=== PATIENT | male | born 1995 | race African-American/Black ===

== ENCOUNTER 2022-09-07 13:00 | Emergency (ER) | payer OTHER, SELFPAY ==
--- NOTE | ~2022-09-07 | XR_ITS ---
XR foot LT 2V 09/07/2022 13:35 INDICATION: Left foot pain PROCEDURE: 4 views left foot COMPARISON: No prior studies for comparison. FINDINGS: Fracture, dislocation or subluxation is not identified. Lisfranc joint is normal. The soft tissues appear within normal limits. No foreign bodies are identified. IMPRESSION: 1: NO ACUTE BONE OR JOINT ABNORMALITY IDENTIFIED. Reviewed, dictated and finalized at location A.
[2022-09-07 13:06] VITALS: BP 145/66; PULSE 67; RESP 17; TEMP 36.2; O2SAT 98
--- NOTE | 2022-09-07 13:47 | ED.GENADULT ---
HPI - General Adult General Chief complaint: Wound/Laceration Stated complaint: nail puncture on foot Time Seen by Provider: 09/07/22 13:11 History of Present Illness HPI narrative: This is a 18-year-old male presenting ED with chief complaint of stepping on a nail. Patient was walking his boots when he stepped on a nail that went through his shoe and into his foot. He does not know his last tetanus shot was. He does not feel a foreign body in his foot foot anymore. He denies any other complaints. Related Data Allergies Allergy/AdvReac Type Severity Reaction Status Date / Time No Known Allergies Allergy Verified 09/07/22 13:08 Review of Systems Review of Systems: CONSTITUTIONAL: Denies night sweats. EYES: No eye pain ENT: Denies rhinorrhea CARDIOVASCULAR: Denies palpitations RESPIRATORY: Denies hemoptysis GASTROINTESTINAL: Denies hematemesis GENITOURINARY: Denies hematuria. SKIN: Denies rash MUSCULOSKELETAL: Denies myalgia. NEUROLOGIC: Denies weakness. PSYCHIATRIC: Denies delusions Exam Narrative: APPEARANCE: No apparent distress. Head atraumatic. EYES: PERRLA/EOMI, NOSE: Normal no drainage NECK: Supple, Trachea midline RESPIRATORY: CTAB, No increased work of breathing. CARDIOVASCULAR: S1S2 appreciated ABDOMINAL: Soft, nontender, nondistended, MUSCULOSKELETAl: No obvious deformities NEURO: Alert. Moving 4/4 extremities SKIN:: small puncture wound on the sole of the left foot over the forefoot. No foreign body noted PSYCHIATRIC: Normal affect Course Vital Signs Vital signs: Vital Signs Temperature 97.2 F L 09/07/22 13:06 Pulse Rate 67 09/07/22 13:06 Respiratory Rate 17 09/07/22 13:06 Blood Pressure 145/66 H 09/07/22 13:06 Pulse Oximetry 98 09/07/22 13:06 Temperature 97.2 F L 09/07/22 13:06 Pulse Rate 67 09/07/22 13:06 Respiratory Rate 17 09/07/22 13:06 Blood Pressure 145/66 H 09/07/22 13:06 Pulse Oximetry 98 09/07/22 13:06 Medical Decision Making [facility] Narrative Medical decision making narrative: This is a 26-year-old male presenting ED after stepping on a nail. I did go through his shoe and into his foot. He will be given a course of Cipro to cover for Pseudomonas. He was given a Tdap booster. Discharged with primary care follow-up. Vital Signs Vital Signs: Vital Signs Temperature 97.2 F L 09/07/22 13:06 Pulse Rate 67 09/07/22 13:06 Respiratory Rate 17 09/07/22 13:06 Blood Pressure 145/66 H 09/07/22 13:06 Pulse Oximetry 98 09/07/22 13:06 Temperature 97.2 F L 09/07/22 13:06 Pulse Rate 67 09/07/22 13:06 Respiratory Rate 17 09/07/22 13:06 Blood Pressure 145/66 H 09/07/22 13:06 Pulse Oximetry 98 09/07/22 13:06 Discharge Plan Discharge Clinical Impression: Puncture Patient Disposition: Home, Self-Care Condition: Stable Instructions: Antibiotic Form Additional Instructions: please complete a 7 day course of ciprofloxacin. Please return emergency department if your foot develops signs of infection. Please follow-up with your primary care physician. Prescriptions: New ciprofloxacin HCl [Cipro] 500 mg tablet 500 mg PO Q12H Qty: 14 0RF Follow-up/Referrals: PHYSICIAN NOT ON STAFF,NONSTAFF [Primary Care Provider] -
[2022-09-07] MEDS: TETANUS,DIPHTHERIA,AC PERTUSSIS ADULT (0.5 ML) BOOSTRIX IM (14:10)
[2022-09-07] MEDS: CIPROFLOXACIN 500 MG TAB PO (14:11)
== END 2022-09-07 14:20 | disposition home or self-care (01) ==
LOC: ANHED 14:06
PROVIDERS: Emergency Provider Emergency Medicine
DX: S91.332A Puncture wound without foreign body, left foot, initial encounter (principal); Z23 Encounter for immunization; W45.0XXA Nail entering through skin, initial encounter
CPT/HCPCS: 73620; 90471; 90715; 99283; A9270

== ENCOUNTER 2024-04-09 10:50 | Emergency (ER) | payer SELFPAY ==
--- NOTE | 2024-04-09 10:50 | ED.MALEGU ---
HPI - Male Genitourinary General Chief complaint: Urogenital-Male Stated complaint: STD testing Time Seen by Provider: 04/09/24 10:50 Source: patient Mode of arrival: ambulatory Limitations: no limitations History of Present Illness HPI Narrative: Patient is a 28-year-old male that presents for STD testing. Patient denies any new partners, exposures or any abnormal symptoms. Patient states he just wants his annual testing. Related Data Home Medications Medication Instructions Recorded Confirmed No Home Medications 04/09/24 04/09/24 Allergies Allergy/AdvReac Type Severity Reaction Status Date / Time No Known Allergies Allergy Verified 04/09/24 10:51 Review of Systems Review of Systems: All systems reviewed & are unremarkable except as noted in HPI and below Constitutional: Constitutional: Denies chills, Denies fever(s), Denies headache(s), Denies malaise and Denies weakness Eyes: Eyes: Denies change in vision, Denies eye discharge and Denies irritation ENT: Denies otalgia, Denies headache(s), Denies nasal congestion, Denies nasal discharge, Denies sinus pain and Denies sore throat Cardiovascular: Cardiovascular: Denies chest pain, Denies edema, Denies palpitations and Denies dyspnea Respiratory: Respiratory: Denies cough and Denies dyspnea Gastrointestinal: Gastrointestinal: Denies abdominal pain, Denies diarrhea, Denies nausea and Denies vomiting Genitourinary: Genitourinary: Denies hematuria, Denies dysuria, Denies flank pain, Denies painful ejaculations, Denies penile discharge, Denies scrotal swelling, Denies testicular pain and Denies urinary urgency Musculoskeletal: Musculoskeletal: Denies back pain and Denies numbness Integumentary/Breasts: Skin/Breast: Denies pruritus and Denies rash Neurologic: Denies headache(s), Denies numbness and Denies weakness Psychiatric: Psychiatric: Reports no additional psychiatric complaints Endocrine: Endocrine: Denies palpitations PMFSH Comments At time of signature, agree with nursing past medical, surgical, social and family history. There is no relevant family history pertinent to the presenting complaint. Exam Const: General: cooperative, healthy appearing, comfortable, no acute distress and well nourished Nutritional Appearance: well nourished Orientation/consciousness: patient oriented x3 HENMT: Head: normocephalic and atraumatic Ears: external ears normal Face/Nose/Sinus: Normal external nose present, Normal nares present and normal facial exam Face and sinus: normal facial exam Eyes: General: appearance normal, both eyes and all related structures Pupils: Equal, round and reactive pupils present EOM: EOMs intact bilaterally Neck: Neck: normal visual inspection, full ROM and supple Chest: Chest palpation & inspection: normal inspection of the chest Resp: Effort & Inspection: normal respiratory effort and able to speak in complete sentences Cardio: Rate: regular rate Rhythm: regular rhythm GI: Inspection: normal to inspection GI Palp: No abdominal tenderness and Yes Soft to palpation : General: Yes no CVA tenderness Back/Spine/Pelvis: Back: no CVA tenderness Skin: General skin exam: normal color and no rashes or lesions noted Neuro: General: patient oriented x3 and moves all extremities Cranial nerves: Yes Equal, round and reactive pupils present Extrem: General: normal to inspection and full ROM Psych: Appearance: grossly normal and well kempt Course Course Emergency Course: Patient is aware of diagnosis, understands and agrees to treatment plan. Anticipatory guidance given. Patient agrees to follow-up as directed and is aware of reasons to seek care at the emergency department. Portions of this record may have been created with voice recognition software Level of Care: Express Care Visit Vital Signs Vital signs: Vital Signs Temperature 36.8 C 04/09/24 11:00 Pulse Rate 62 04/09/24 11:00 Respiratory Rate 16 05/3
[2024-04-09 11:00] VITALS: BP 123/59; PULSE 62; RESP 16; TEMP 36.8; O2SAT 100
[2024-04-09 19:41] LABS: Trichomonas Vag PCR NOT DETECTED (NOT DETECTE)
[2024-04-09 20:06] LABS: Chlamydia trachomatis NOT DETECTED (NOT DETECTE); Neisseria gonorrhoeae PCR NOT DETECTED (NOT DETECTE)
== END 2024-04-09 11:30 | disposition home or self-care (01) ==
PROVIDERS: Emergency Provider Nurse Practitioner Family
DX: Z11.3 Encounter for screening for infections with a predominantly sexual mode of transmission (principal)
CPT/HCPCS: 87491; 87591; 87661; 99213; G0463